=== PATIENT | female | born 1965 | race Two or more races ===

== ENCOUNTER 2024-09-19 20:44 | Emergency (ER) | payer OTHER ==
[~2024-09-19] VITALS: Ht 175.3 cm; Wt 86.2 kg
[2024-09-19 20:48] VITALS: BP 129/80; O2SAT 99
[2024-09-19] MEDS ORDERED: NEURONTIN300 MG PO (20:49)
[2024-09-19] MEDS ORDERED: TIROSINT50 MCG (20:49)
[2024-09-19] MEDS ORDERED: ORPHENADRINE CITRATE 30 MG/ML AMPUL IM ONE (21:30)
[2024-09-19] MEDS ORDERED: KETOROLAC TROMETHAMINE 60 MG VIAL IM ONE (21:30)
[2024-09-19] MEDS ORDERED: AMITRIPTYLINE150 MG PO (22:37)
[2024-09-19] MEDS ORDERED: DICLOFENAC SODI75 MG PO (22:37)
[2024-09-19] MEDS ORDERED: TIROSINT50 MCG PO (22:37)
[2024-09-19] MEDS ORDERED: EFFEXOR XR150 MG PO (22:37)
[2024-09-19] MEDS ORDERED: AMITRIPTYLINE H25 MG PO (22:37)
[2024-09-19] MEDS ORDERED: GABAPENTIN300 M2 PO (22:37)
[2024-09-19] MEDS ORDERED: VISTARIL25 MG PO (22:38)
== END 2024-09-19 22:43 | disposition home or self-care (01) ==
LOC: ER 20:44
DX: S39.82XA Other specified injuries of lower back, initial encounter (principal); V49.88XA Car occupant (driver) (passenger) injured in other specified transport accidents, initial encounter; Y93.89 Activity, other specified; Y92.89 Other specified places as the place of occurrence of the external cause; Y99.8 Other external cause status; M54.9 Dorsalgia, unspecified; Z88.0 Allergy status to penicillin; Z88.2 Allergy status to sulfonamides